=== PATIENT | female | born 1945 | race Caucasian/White ===

== ENCOUNTER 2024-07-31 11:20 | Emergency (ER) | payer MEDICARE, SELFPAY ==
--- NOTE | ~2024-07-31 | XR_ITS ---
EXAMINATION: XR wrist RT min 3V DATE: 07/31/2024 11:44 INDICATION: Radial sided right wrist pain and swelling post fall TECHNIQUE: Posteroanterior, ulnar deviation, oblique, and lateral views of the right wrist were obtai komal. COMPARISON: none FINDINGS: Dorsally impacted fracture the distal right radius with buckling of the dorsal sided cortex and 10 de grees dorsal tilt of the distal articular surface. Aside from the cortical buckling the fracture line is unable be clearly visualized. No definitive involvement of the articular cortex although this can not be absolutely excluded given the proximity. No other fractures identified. There is widening of t he scapholunate interval with increase lunocapitate and scapholunate angles consistent with scapholun ate ligament insufficiency and secondary dorsal intercalated segment instability (DISI). 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 Additional miley yarticular osteoarthritis, moderate to severe at the second and third metacarpophalangeal joints, mod erate at the fourth metacarpophalangeal joint and mild at the distal radioulnar, triscaphe, first car pometacarpal, first and fifth metacarpophalangeal and at the visualized proximal interphalangeal join ts. IMPRESSION: 1. Dorsal impaction of a nondisplaced fracture of the distal right radius with 10 degree dorsal tilt of the distal articular surface. 2. 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 3. 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 This atypical distribution can be seen in the setting of secondary osteoarthritis related to calci um pyrophosphate deposition (CPPD) disease. Reviewed, dictated and finalized at location A. ECTIVE SIGNAL OPERATOR IMPRESSION: 1. Dorsal impaction of a nondisplaced fracture of the distal right radius with 10 degree dorsal tilt of the distal articular surface. 2. 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 3. Polyarticular osteoarthritis, moderate to severe at the second and third met acarpophalangeal joints. This atypical distribution can be seen in the setting of secondary osteoarthritis related to calcium pyrophosphate deposition (CPPD) disease.
--- OUTSIDE RECORDS SUMMARY | 2024-07-31 11:24 | XMS_ITS | Referral Summary ---
Author Organization [facility] Address [address] [place] [address] Care Team Providers Care Deli Associate Name Role Phone Zulay Snell MD Primary Care Provider +- [phone] Maximus Collier MD Unavailable [phone] Bryon Hwang DC Unavailable [phone] José Wing MD Unavailable [phone] Can Munroe MD Unavailable [phone] Enedina Carpenter MD Unavailable [phone] Allergies Active Allergy Reactions Criticality Noted Date Comments Risedronate Nausea only Low 12/07/2018 Ibandronate Nausea only Low 12/07/2018 Raloxifene Other (See comments) Low 04/25/2017 Calf cramps Medications dorzolamide-jerry olol (COSOPT) 22.3-6.8 mg/mL ophthalmic solution 7 Active bimatoprost (LUMIGAN) 0.01 % ophthalmic drops Administer into affected eye(s). Active vitamins A,C,E-zinc-rocío er (ICAPS) 14,320-226-200 aofv-sn-xtvc capsule as directed Active cholecalciferol (VITAMIN D-3) 5,000 unit capsule daily Active zw4-noc-mhv-cod liver-vit A-D3 240-1,000 mg capsule daily Active vit C/vit E/lutein/min/om ega-3 (OCUVITE ORAL) Take by mouth Active multivitamin with minerals tablet Take 1 tablet by mouth daily Active vitamin B complex capsule Take 1 capsule by mouth daily Active Active Problems Problem Noted Date Diagnosed Date Spasm of sphincter of Oddi 12/29/2020 Biliary tract disease 10/24/2017 Overview (11/28/2017): Images from the original note were not included. ERCP October 2017, underwent gallbladder removal, pancreatic duct stent in dilatation of the pancreatic duct. She still following up on a single pancreatic cyst associated with this problem. November 2017 Lymphopenia 11/15/2016 Overview (12/29/2020): The evaluated by Dr. Cosme 2018 Vegan diet 11/15/2016 Osteoporosis, idiopathic 10/26/2013 Overview (02/02/2023): Images from the original note were not included. Medication history for this problem: Attempted Actonel and Boniva and a Malone all of which caused side effects use medications only for about 3 months DEXA 2022 (+) osteoporosis on a new machine AP LUMBAR SPINE L1-L4:Total BMD is 0.858 g/cm2 T-score is -1.7 LEFT HIP:Total BMD is 0.594 g/cm2 T-score is -2.9 Femoral neck BMD is 0.577 g/cm2 T-score is -2.5 DEXA December 2018 LUMBAR SPINE: Mean bone mineral content is 0.891 g/cm2. The T-score is -1.4. LEFT HIP: Mean bone mineral content is 0.613 g/cm2. The neck T-score is -2.4. The total T-score is -2.7. CT abdomen showed 12/23/2016 : DEXA 2017 Assessment & Plan (11/15/2016 9:06 AM CDT): History of adverse leg irritation from Actonel 35 milligrams weekly June 2002 to June 2003, intolerant in the same way to Boniva 150, calf cramping developed with the staff and postmenopausal hormone Activella cause headaches Glaucoma 10/26/2013 Overview (11/15/2016): Glaucoma Dr. Wing takes care of this problem Resolved Problems Problem Noted Date Diagnosed Date Resolved Date Chronic abdominal pain 10/24/201711/28 Dyskinesia of gallbladder 10/24/2017 Overview (11/28/2017): Pancreatic duct stricture dilated 10/24/[address] COLLIER and gallbladder removed by Dr. Munroe at [facility] ([facility]) 10/24/201711/28 History of hyperparathyroidism 04/23/2017 04/25/2017 Left lower quadrant abdomina l swelling, mass and lump 02/19/2017 12/07/2018 Overview (02/22/2017): Images from the original note were not included. January 2017 Abdominal pain evaluation consistent with pancreatic pseudocyst, chronic pancreatitis : DIAGNOSIS COMMENT: There is a pancreatic duct stricture consistent with previous passage of possible gallstones causing a small pseudocyst. Is noted that the pancreatic fluid CEA levels are 22.2 and the pancreatic fluid amylase level is greater than 1500. The constellation of findings support diagnosis of pseudocyst. 01/2017 cyst aspirate Pancreatic cyst, cytology: - Satisfactory for evaluation - No malignant cells identified - Scant cellular debris, few inflammatory cells and rare collection of benign low cuboidal epithelial cells, compatible with pancreatic pseudocyst EGD biopsies January 2017 (-) Stomach, body, biopsy: - Minimal chronic inflammation, nonspecific - No intestinal metaplasia, dysplasia, or malignancy - No Helicobacter-like microorganisms identified on routine H&E stained section Stomach, antrum, biopsy: - Mild chronic gastritis - No intestinal metaplasia, dysplasia, or malignancy - No Helicobacter-like microorganisms identified on routine H&E stained section Small intestine, duodenum, biopsy: - No histopathologic abnormality 12/09/16 CT abdominal sonogram December 2016 Metabolic pancreatitis 02/19/201704/25 Overview (02/19/2017): New onset of the syndrome January 2017 Cause of the pancreatitis remains unclear however patient does have a history of chronic hyperparathyroidism that could be the cause January 2017 Abdominal pain evaluation consistent with pancreatic pseudocyst, chronic pancreatitis : DIAGNOSIS COMMENT: Is noted that the CEA levels are 22.2 and the amylase level is greater than 1500. The constellation of findings support a diagnosis of pseudocyst. 01/2017 cyst aspirate Pancreatic cyst, cytology: - Satisfactory for evaluation - No malignant cells identified - Scant cellular debris, few inflammatory cells and rare collection of benign low cuboidal epithelial cells, compatible with pancreatic pseudocyst Immunizations Immunization Administration Dates Next Due Influenza, Quad, Adjuvantate d, Intramuscular 01/31/2023 Influenza, Quadrivalent, Spl it, Intramuscular 02/05/2020 Influenza, Quadrivalent, Spl it, Preservative Free, Intramuscular 03/02/2022,05/05/2021,03/25/2019,03/26 Influenza, Trivalent, Cell Culture-based MDCK, Preservative Free, Antibiotic Free, Intramuscular 02/27/2024 Influenza, Unspecified 03/27/2018 Moderna SARS-CoV-2 Monovalen t Vaccination (12+ YRS) 08/31/2020,07/23/2020 Pneumococcal Conjugate PCV 13 09/30/2014, 012 Pneumococcal Polysaccharide PPV23 11/15/2016, Td, adsorbed 03/03/2022 Tdap 01/31/2023,10/05/2012 ZOSTER LIVE 05/08/2008 ZOSTER Recombinant 04/06/2020,01/30/2020 Social History Tobacco Use Types Packs/Day Years Used Date Smoking Tobacco: Never Smokeless Tobacco: Never Alcohol Use Standard Drinks/Week Comments No 0 (1 standard drink = 0.6 oz pur e alcohol) AUDIT-C Answer Date Recorded Q1: How often do you have a drink containing alc ohol? Monthly or less 09/25/2023 Q2: How many drinks containi ng alcohol do you have on a typical day when you are drinking? 1 or 2 09/25/2023 Q3: How often do you have si x or more drinks on one occasion? Never 09/25/2023 PHQ-2 Answer Date Recorded PHQ-2 Total Score (If total score is 3 or more points, staff should administer the PHQ-9) 0 03/06/2024 Personal Safety Answer Date Recorded Have you ever been in or are you currently in a harmful physical or emotional relationship or is someone making you feel afraid or unsafe? 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 Gender Identity Not on file Sexual Orientation Not on file Last Filed Vital Signs Vital Sign Reading Time Taken Comments Blood Pressure 138/62 03/06/2024 10:13 AM CDT Pulse 88 03/06/2024 10:13 AM CDT Temperature 36.1 C (96.9 F) 03/06/2024 10:13 AM CDT Respiratory Rate 18 03/06/2024 10:13 AM CDT Oxygen Saturation 83% 03/06/2024 10:13 AM CDT Inhaled Oxygen Concentration - - Weight 53.6 kg (118 lb 3.2 oz) 03/06/2024 10:13 AM CDT Height 162.6 cm (5' 4 ) 03/06/2024 10:13 AM CDT Body Mass Index 20.29 03/06/2024 10:13 AM CDT Plan of Treatment Not on file Medical Devices Explanted Type Area Hi Low Truck Driver Device Identifier Shelf Expiration Date Model / Serial / Lot Stent Pancreatic Van Flexi-Stent .035 In L3 Cm Od7 Fr Small Pigtail Flexible - [id number] Implanted:Qty: 1 on 10/23/2017 by Maximus Collier MD at [facility] Explanted:Qty: 1 on 10/25/2017 by Maximus Collier MD at [facility] Stent N/A: Pancreas [employer] 05/11/2022 [id number] / / [id number] Stent Endoprosthesis Viabil Nitinol L60 Mm L200 Cm Od8 Mm Od8.5 Fr Biliary Expandable Pull Line Without Holes - [id number] - [id number] Implanted:Qty: 1 on 10/23/2017 by Maximus Collier MD at [facility] Explanted:Qty: 1 on 10/25/2017 by Maximus Collier MD at [facility] Stent N/A: Bile Duct Conmed Musa 05/30/2020 [id number] / [id number] / Procedures Procedure Name Priority Date/Time Associated Diagnosis Comments DEXA AXIAL SKELETON BONE DENSITY 1 OR MORE SITES Schedule Routine, Read Routine (OP Routine) 02/02/2023 2:11 PM CDT Menopause from Last 3 Months or Most Recently Relevant to Health Maintenance Results * Dexa Axial Skeleton Bone Density 1 or 2 Site (02/02/2023 2:11 PM CDT) Anatomical Region Laterality Modality Body N/A Other 02/02/2023 9:23 PM CDT Narrative 02/02/2023 9:26 PM CDT EXAM DESCRIPTION: DEXA AXIAL SKELETON BONE DENSITY 1 OR MORE SITES REASON FOR STUDY: 77 y/o year old F with given history of: menopause Screening Hi Low Truck Driver/Model: CompassMed SL (S/N [id number]) CLINICAL INFORMATION: Current height: 63.5 inches Maximum height: 64.5 inches Weight: 121 pounds Risk factors: Postmenopausal COMPARISON: 12/11/2018, 12/15/2020 FINDINGS: AP LUMBAR SPINE L1-L4: Total BMD is 0.858 g/cm2 T-score is -1.7 Dissimilar scan types or analysis methods precludes assessment for calculating a significant change. LEFT HIP: Total BMD is 0.594 g/cm2 T-score is -2.9 Femoral neck BMD is 0.577 g/cm2 T-score is -2.5 FRAX: FRAX not reported due to T-scores of hip, femoral neck and/or spine being at or below -2.5 (Osteoporosis). IMPRESSION: Osteoporosis. REFERENCE: Bone mineral density: Normal (T-score above or = -1.0) Low bone mass (T-score between -1.0 and -2.5) replaces the previously used term osteopenia Osteoporosis (T-score = or below -2.5) Medical evaluation for secondary causes of low bone mineral density may be appropriate. FRAX is a World Health Organization validated fracture risk assessment tool that calculates a person's 10 year probability of a major osteoporosis related fracture and hip fracture. According to the National Osteoporosis Foundation guidelines, postmenopausal women and men age 50 or older with low bone mass and a 10 year probability of a major osteoporosis related fracture = or greater than 20% or a 10 year probability of a hip fracture = or greater than 3% should be considered for treatment. For further information, including treatment recommendations, please refer to the 2019 ISCD Official Positions (http://www.iscd.org) and the NOF's Clinician's Guide to Prevention and Treatment of Osteoporosis (http://www.nof.org/professionals/clinical-guidelines) THIS IS AN ELECTRONICALLY VERIFIED FINAL REPORT 02/02/2023 9:26 PM - Electronically signed by Brijesh Ferreira M.D. MF: KALYN Report ID: [id number] Reading Location: [id number] Procedure Note Brijesh Ferreira MD - 02/02/2023 EXAM DESCRIPTION: DEXA AXIAL SKELETON BONE DENSITY 1 OR MORE SITES REASON FOR STUDY: 77 y/o year old F with given history of: menopause Screening Hi Low Truck Driver/Model: ViFlux (S/N 58193) CLINICAL INFORMATION: Current height: 63.5 inches Maximum height: 64.5 inches Weight: 121 pounds Risk factors: Postmenopausal COMPARISON: 12/11/2018, 12/15/2020 FINDINGS: AP LUMBAR SPINE L1-L4: Total BMD is 0.858 g/cm2 T-score is -1.7 Dissimilar scan types or analysis methods precludes assessment for calculating a significant change. LEFT HIP: Total BMD is 0.594 g/cm2 T-score is -2.9 Femoral neck BMD is 0.577 g/cm2 T-score is -2.5 FRAX: FRAX not reported due to T-scores of hip, femoral neck and/or spine beingat or below -2.5 (Osteoporosis). IMPRESSION: Osteoporosis. REFERENCE: Bone mineral density: Normal (T-score above or = -1.0) Low bone mass (T-score between -1.0 and -2.5) replaces thepreviously used term osteopenia Osteoporosis (T-score = or below -2.5) Medical evaluation for secondary causes of low bone mineral density may be appropriate. FRAX is a World Health Organization validated fracture risk assessmenttool that calculates a person's 10 year probability of a major osteoporosisrelated fracture and hip fracture. According to the National OsteoporosisFoundation guidelines, postmenopausal women and men age 50 or older with low bonemass and a 10 year probability of a major osteoporosis related fracture = or greater than 20% or a 10 year probability of a hip fracture = or greaterthan 3% should be considered for treatment. For further information, including treatment recommendations, please referto the 2019 ISCD Official Positions (http://www.iscd.org) and the NOF's Clinician's Guide to Prevention and Treatment of Osteoporosis (http://www.nof.org/professionals/clinical-guidelines) THIS IS AN ELECTRONICALLY VERIFIED FINAL REPORT 02/02/2023 9:26 PM - Electronically signed by Brijesh Ferreira M.D. MF: KALYN Report ID: [id number] Reading Location: [place] [address] Zulay Snell MD IMG DXA PROCEDURES Final R esult from Last 3 Months or Most Recently Relevant to Health Maintenance Insurance MEDICARE SOLUTIONS AETNA MEDICARE AETNA MEDICARE Advance Directives For more information, please contact: [phone] Documents on File Type Date Recorded Patient Application Architect Expl anation ADVANCE DIRECTIVE 12/07/2018 9:46 AM DNR ADVANCE DIRECTIVE 06/17/2014 12:00 AM LIVIN G WILL ADVANCE DIRECTIVE 06/17/2014 12:00 AM POWER OF RETAIL CUSTOMER SERVICE SPECIALIST FINANCIAL/MEDICAL ADVANCE DIRECTIVE 09/07/2006 LIVING BAILEY L ADVANCE DIRECTIVE 09/07/2006 POWER OF A TTORNEY-MEDICAL * Full Code (Latest Code Status on File) Date Activated Date Inactivated Comments 09/25/2023 9:38 AM 09/25/2023 4:00 PM * Full Code Date Activated Date Inactivated Comments 09/23/2020 10:34 AM 09/23/2020 6:10 PM * Full Code Date Activated Date Inactivated Comments 09/21/2018 8:44 AM 09/21/2018 4:00 PM * Full Code Date Activated Date Inactivated Comments 10/25/2017 9:19 AM 10/25/2017 5:19 PM * Full Code Date Activated Date Inactivated Comments 10/24/2017 9:22 PM 10/25/2017 9:19 AM Care Teams Deli Associate Relationship Specialty Start Date End Date Zulay Snell MD PCP - General 09/09/16 Maximus Collier MD [address] [address] Gastroenterology 02/22/17 Bryon Hwang DC [address] [facility] [address] [place] [address] Chiropractic Medicine 04/25/17 José Wing MD [address] [facility] [address] [place] [address] Ophthalmology 04/25/17 Can Munroe MD [address] [facility] [address] [place] [address] Consulting Physician General Surgery 11/28/17 Enedina Carpenter MD [address] [facility] [address] [place] [address] Consulting Physician Gastroenterology 11/28/17 Ruthie Mcmahan Dentist Dentistry 01/05/22
--- OUTSIDE RECORDS SUMMARY | 2024-07-31 11:24 | XMS_ITS | Clinical Summary ---
Author Organization [facility] Address [address] [place] [address] Care Team Providers Care Undercar Specialist Name Role Phone Zulay Snell MD Primary Care Provider [phone]- [phone] Maximus Alfonso MD Unavailable [phone] Bryon Hwang DC Unavailable [phone] José Wing MD Unavailable [phone] Can Munroe MD Unavailable [phone] Enedina Carpenter MD Unavailable [phone] Allergies Active Allergy Reactions Criticality Noted Date Comments Risedronate Nausea only Low 12/07/2018 Ibandronate Nausea only Low 12/07/2018 Raloxifene Other (See comments) Low 04/25/2017 Calf cramps Medications dorzolamide-jerry olol (COSOPT) 22.3-6.8 mg/mL ophthalmic solution 7 Active bimatoprost (LUMIGAN) 0.01 % ophthalmic drops Administer into affected eye(s). Active vitamins A,C,E-zinc-rocío er (ICAPS) 14,320-226-200 qgyb-mf-iykb capsule as directed Active cholecalciferol (VITAMIN D-3) 5,000 unit capsule daily Active ig3-sjt-noa-cod liver-vit A-D3 240-1,000 mg capsule daily Active [...] problem: Attempted Actonel and Boniva and a [place] all of which caused side effects use [...] Pancreatic duct stricture dilated 10/24/[address] ALFONSO and gallbladder removed by Dr. Munroe at [facility] ([facility]) 10/24/201711/28 History of hyperparathyroidism 04/23/2017 04/25/2017 Left [...] 01/31/2023,10/05/2012 ZOSTER LIVE 05/08/2008 ZOSTER Recombinant 04/06/2020,01/30/2020 Surgical History Surgery Date Site/Laterality Comments EYE SURGERY cataract left eye and retina both eye TUBAL LIGATION COLONOSCOPY 10/11/[address] Carpenter VITRECTOMY 07/13/2007 - 08/10/2007 Dr. WING OTHER SURGICAL HISTORY TONSILLECTOMY/ADENOIDECTOMY ERCP ERCP 09/21/2018 Dr. ALFONSO/ Dr. 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 biopsies not taken CATARACT EXTRACTION 06/12/2021 - 07/12/2021 Right Medical History Medical History Date Comments Hx Other Medical 2013 Shingles Cataract left eye Glaucoma Osteoporosis Varicella chicken pox and shingles Vitamin D deficiency Weight loss Infectious viral hepatitis test positive for Hep B Dyskinesia of gallbladder 10/24/2017 Family History Medical History Relation Name Comments Heart failure Father Alzheimer's disease Mother Osteoporosis Mother Breast cancer Mother's Sister Relation Name Status Comments Father Mother Mother's Sister Social History Tobacco Use Types Packs/Day Years [...] on file 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 Gender Identity Not on file Sexual Orientation Not on file Obstetrics History Para Term AB IAB SAB Ectopic Multiple Livin g Live Births 4 2 2 Date Outcome GA Total Labor Labor/2nd/3rd Weight Sex Type Anes PTL Dorothea A1 A5 Name Clin Term Term Last Filed Vital Signs Vital Sign Reading [...] 03/06/2024 10:13 AM CDT Plan of Treatment Health Maintenance Due Date Last Done Comments Covid-19 Vaccine (2023-07 5 season) 2024 04/14/2021, 08/31/2020, 07/23/2020 Osteoporosis Screening-Bone Density Scan 02/02/2025 02/02/2023, 12/15/2020, 12/11/2018 Depression Screening 03/06/2025 03/06/2024, 01/26/2023, 01/05/2022, Additional history exists Fall Risk Assessment 03/06/2025 03/06/2024, 01/26/2023, 01/05/2022, Additional history exists Well Visit 65+ 03/06/2025 03/06/2024, 01/10, 01/05/2022, Additional history exists DTaP/Tdap/Td Vaccine (4 - Td or Tdap) 01/31/2033 01/31/2023, 03/03/2022, 10/05/2012 Pneumococcal vaccine 65+ Completed 017, 09/30/2014, 11/10/2011, Additional history exists Zoster Vaccine Completed 04/06/2020, 01/11, 05/08/2008 Influenza Vaccine Completed 02/27/2024, , 03/02/2022, Additional history exists Hepatitis B Screening Completed 03/06/2024 Medical Devices Explanted Type Area Community Dietitian Device Identifier Shelf Expiration Date Model / Serial / Lot Stent Pancreatic Van Flexi-Stent .035 In L3 Cm Od7 Fr Small Pigtail Flexible - [id number] Implanted:Qty: 1 on 10/23/2017 by Maximus Alfonso MD at [facility] Explanted:Qty: 1 on 10/25/2017 by Maximus Alfonso MD at [facility] Stent N/A: Pancreas [employer] 05/11/2022 [id number] / / [id number] Stent Endoprosthesis Viabil Nitinol L60 Mm L200 Cm Od8 Mm Od8.5 Fr Biliary Expandable Pull Line Without Holes - [id number] - [id number] Implanted:Qty: 1 on 10/23/2017 by Maximus Alfonso MD at [facility] Explanted:Qty: 1 on 10/25/2017 by Maximus Alfonso MD at [facility] Stent N/A: Bile Duct Conmed Musa 05/30/2020 [id number] / [id number] / Procedures Procedure Name Priority Date/Time Associated [...] F with given history of: menopause Screening Community Dietitian/Model: [employer]anetics (S/N 63541) CLINICAL INFORMATION: Current height: 63.5 inches Maximum [...] Brijesh Ferreira M.D. MF: KALYN Report ID: [id number] Reading Location: [id number] Procedure Note Brijesh Ferreira MD - 02/02/2023 EXAM DESCRIPTION: DEXA AXIAL SKELETON BONE DENSITY 1 OR MORE SITES REASON FOR STUDY: 77 y/o year old F with given history of: menopause Screening Community Dietitian/Model: Bundle [employer] SL (S/N 14058) CLINICAL INFORMATION: Current height: 63.5 inches Maximum [...] Brijesh Ferreira M.D. MF: KALYN Report ID: [id number] Reading Location: [place] [address] Zulay Snell MD IMG DXA PROCEDURES Final R esult from Last 3 Months or Most Recently Relevant to Health Maintenance Insurance MEDICARE SOLUTIONS AETNA MEDICARE AETNA MEDICARE Advance Directives For more information, please contact: [phone] Documents on File Type Date Recorded Patient Carroter Expl anation ADVANCE DIRECTIVE 12/07/2018 9:46 AM DNR ADVANCE DIRECTIVE 06/17/2014 12:00 AM LIVIN G WILL ADVANCE DIRECTIVE 06/17/2014 12:00 AM POWER OF TONAL REGULATOR FINANCIAL/MEDICAL ADVANCE DIRECTIVE 09/07/2006 LIVING BAILEY L [...] 9:22 PM 10/25/2017 9:19 AM Care Teams Undercar Specialist Relationship Specialty Start Date End Date Zulay Snell MD PCP - General 09/09/16 Maximus Alfonso MD [address] [address] Gastroenterology 02/22/17 Bryon Hwang DC [address] [address] Chiropractic Medicine 04/25/17 José Wing MD [address] [address] Ophthalmology 04/25/17 Can Munroe MD [address] [address] Consulting Physician General Surgery 11/28/17 Enedina Carpenter MD [address] [address] Consulting Physician Gastroenterology 11/28/17 Ruthie Mcmahan Dentist Dentistry 01/05/22
--- OUTSIDE RECORDS SUMMARY | 2024-07-31 11:25 | XMS_ITS | Encounter Summary ---
[facility] Organization [facility] Address [address] [place] [address] Phone Care Team Providers Care Teacher Of Family And Consumer Science Name Role Phone Zulay Snell MD Primary Care Provider [phone]- [phone] Maximus Alfonso MD Unavailable [phone] Tre Cosme MD Unavailable Bryon Hwang DC Unavailable [phone] José Wing MD Unavailable [phone] Can Munroe MD Unavailable [phone] Enedina Carpenter MD Unavailable [phone] Encounter Details Date Type Department Care Team (Late st Contact Info) Description 11/17/2016 Orders Only [facility] [address] [place] [address] Tamia Peterson MA Social History Tobacco Use Types Packs/Day Years Used Date Smoking Tobacco: Never Assessed Comments Unknown Sex and Gender Information Value Date Recorded Sex Assigned at Not on file 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 Gender Identity Not on file Sexual Orientation Not on file documented as of this encounter Plan of Treatment Not on file documented as of this encounter Visit Diagnoses Not on filedocumented in this encounter Care Teams Teacher Of Family And Consumer Science Relationship Specialty Start Date End Date Zulay Snell MD PCP - General 09/09/16 Maximus Alfonso MD [address] [address] Gastroenterology 02/22/17 Tre Cosme MD [address] [address] Medical Oncology 02/22/17 12/28/20 Bryon Hwang DC [address] [address] Chiropractic Medicine 04/25/17 José Wing MD [address] [place] [address] Ophthalmology 04/25/17 Can Munroe MD [address] [place] [address] Consulting Physician General Surgery 11/28/17 Enedina Carpenter MD [address] [place] [address] Consulting Physician Gastroenterology 11/28/17 Ruthie Mcmahan Dentist Dentistry 01/05/22 documented as of this encounter
--- OUTSIDE RECORDS SUMMARY | 2024-07-31 11:25 | XMS_ITS | Continuity of Care Document ---
Author Organization [employer] [facility] Address [address] [facility] [address] [address] Phone Care Team Providers Care Bakery Supervisor Name Role Phone Mainor Monet MD, MD Unavailable Unavailab le Allergies, Adverse Reactions, Alerts Substance Reaction Status Criticality No Known allergies Medications Medication Instructions Dosage Effective Dates (start - stop) Status Comments Lumigan 0.03 % Eye Drops instill 1 drop by Ophthalmic route every day into affected eye(s) in the evening - Active Procedures Procedure Date Post-op Follow-up Visit Post-op Follow-up Visit Post-op Follow-up Visit Remove Cataract, Insert Lens IOLMaster-Professional SCODI, Posterior Segment Corneal Topography IOLMaster-Technical Eye Exam Established Pt Certified EMR One Or More Rx Generated And Transmitted Optic Nerve Head Eval IPO Reduced 15% SCODI, Posterior Segment Office/outpatient Visit, Est Visual Field Examination(s) Office/outpatient Visit, Est Optic Nerve Head Eval IPO Reduced 15% Office/outpatient Visit, Est Office/outpatient Visit, Est SCODI, Posterior Segment Office/outpatient Visit, Est Visual Field Examination(s) Office/outpatient Visit, New Special Eye Evaluation Corneal Pachymetry Eye Exam Established Pt Ophthalmoscopy, Subsequent Ophthalmoscopy, Subsequent Office Consultation Ophthalmoscopy Eye Exam, New Patient Advance Directives Directive Yes / No Effective Date File Name Resuscitation Not Answered N/A N/A Life Support Not Answered N/A N/A Intubation Not Answered N/A N/A Antibiotics Not Answered N/A N/A IV Fluid Support Not Answered N/A N/A Tube Feed Not Answered N/A N/A Other Directive N/A N/A WARNING:The information contained in this section is historical and is provided for information only and does not constitute a legal document or any assurance that the information is still accurate. Please verify the information with the cruz of the legal document before using it for clinical purposes. Encounters Encounter Description Practice Location Reason(s) For Visit Diagnoses Date Provider Providers Copied on Encounter [facility], [address] [place] [address] [address], [place], [place], [address], tel:[phone] SEC Jesus GARCIA Professional a comprehensiv e exam (chief complaint) FOLLOW-UP SURGERY NOS - 2 Tierney Hayward. [facility], [address], [facility], . tel:[phone] [facility], [address] [place] [address] [address], [place], [place], [address], tel:[phone] SEC Jesus JOSE Professional a comprehensiv e exam (chief complaint) FOLLOW-UP SURGERY NOS 0- 2 Tierney Hayward. [address] [facility], [address], [place], [facility], . tel:[phone] [facility], [address] [place] [address] [address], [place], [place], [address], tel:[phone] SEC Jesus [place] Professional a comprehensiv e exam (chief complaint) No Information 2 Tierney Hawyard. [address], [address], [place], [place], [facility], [place]. tel:[phone] [facility], [address], [place], [place], [address], [place] tel:[phone] [facility] No Information 2 Tierney Hayward. [address], [address], [place], [place], [facility], [place]. tel:[phone] [facility], [address], [place], [place], [address], [place] tel:[phone] SEC Dianne N [place] No Information 2 Tierney Hayward. [address], [address], [place], [place], [facility], [place]. tel:[phone] [facility], [address], [place], [place], [address], [place] tel:[phone] SEC [place] N [place] No Information 2 Tierney Hayward. [address], [address], [place], [facility], [place]. tel:[phone] [facility], [address], [place], [place], [address], [place] tel:[phone] SEC [place] N [place] No Information 2 Tierney Hayward. [address], [place], [facility], [place]. tel:[phone] [facility], [address], [place], [place], [address], [place] tel:[phone] SEC [place] Professional a comprehensiv e exam (chief complaint) POST SUBCAP SENILE CATARPRIM OPEN ANGLE GLAUCOMAINCI PIENT CATARACTSENI LE NUCLEAR CATARACT 2 Tierney Hayward. [address], [place], [address], [place]. tel:[phone] [facility], [address], [place], [place], [address], [place] tel: [phone] SEC Jesus JOSE Professional No Information 2 Wankum Mckay. [address] [facility], [facility], [place], [place], [address], [place]. tel:[phone] Office/outpat ient Visit, [facility], [address], [place], [place], [address], [place] tel:[phone] SEC [place] Professional No Information 2 Wankum Mckay. [address] [facility] [facility], [facility] [place], [address], [place]. tel:[phone] Office/outpat ient Visit, [facility], [address], [place], [place], [address], [place] tel:[phone] SEC [place] Professional No Information 2 Wankum Mckay. [address] [facility], [facility] [place], [address], [place]. tel:[phone] Office/outpat ient Visit, [facility], [address] [place] [address] [address], [place], [place], [address], [place] tel:[phone] SEC Jesus [place] Professional No Information 1 Wankum Mckay. [address] [facility], [facility] [place], [address], [place]. tel:[phone] Office/outpat ient Visit, [facility], [address], [place], [place], [address], [place] tel:[phone] SEC Jesus [place] Professional No Information 1 Wankum Mckay. [address], [place], [place], [address], [place]. tel:[phone] Office/outpat ient Visit, [facility], [address], [place], [place], [address], [place] tel:[phone] SEC Jesus [place] Professional No Information 1 Wankum Mckay. [address], [address], [place], [place], [address], [place]. tel:[phone] Office/outpat ient Visit, [facility], [address], [place], [place], [address], [place] tel:[phone] SEC [place] Professional No Information 1 Wankum Mckay. [address], [place], [place], [address], [place]. tel:[phone] [facility], [address], [place], [place], [address], [place] tel:[phone] [facility] No Information 8 Licea Orion. [address] [place], [address], [place]. tel:[phone] [facility], [address], [place], [place], [address], [place] tel:[phone] [facility] No Information 8 Vinayak Orion. [address] [place], [address], [place]. tel:[phone] [facility], [address], [place], [place], [address], [place] tel:[phone] [facility] No Information 200 8 Liceawilli Sears. [address] [facility], [place], [address], [place]. tel:[phone] Referring Provider: Sebastien Elizondo, [address], [place], [address]. tel:[phone] [facility], [address], [place], [place], [address], [place] tel:[phone] [facility] No Information 200 8 Yolanda Crowe. [address] [facility] , [address], [place], [address], [place]. tel:[phone] Family History Family Member Type Diagnosis Age At Onset Problem (finding) Close relative Problem (finding) glaucoma Payers Payer name Insurance type Covered constitution party ID Authoriza tion(s) No Information Social History Type Description Quantity Date Captured Comments Alcohol Use Details Unknown Caffeine Use Details Unknown Tobacco Use Status No Information Smoking Status No Information Sex Female Chief Complaint And Reason For Visit From encounter dated '03/21/2012 15:30'. a comprehensive exam (chief complaint) Reason For Referral Reason For Referral No Information History Of Present Illness Encounter Date Complaint History Of Prese nt Illness No Information Functional Status Date Functional Assessmen t No Information Instructions Date Instruction Additional Infor mation FOLLOW-UP SURGERY NO S, OS - 2 month po phaco w/ PCIOL- vision affected - will continue to monitor - Discussed vision and curved lines. Pt understands she will need to be referred back to Dr. Moreno. Suspicious of possible fluid in retina, pt states ERM removed from OS. Use Nevanac TID until seen by retina specialist. Azopt BID OS. Lumigan qhs OD. Will monitor. Related to FOLLOW-UP SURGERY NOS - Refer to Dr. Moreno/ yariel goode Related to FOLLOW-UP SURGERY NOS - 3 months either doctor w/ VF R elated to FOLLOW-UP SURGERY NOS FOLLOW-UP SURGERY NO S, OS - 2 week po phaco w/ PCIOL-established, stable - vision improved - will continue to monitor - Continue tapering gtts. No activity restrictions. Azopt OS, Lumigan OD, continue Azopt for 3 weeks BID OS. After 3 weeks go back to lumigan. If refilled then use Azopt until gone. Monovision. Related to FOLLOW-UP SURGERY NOS poag - azopt for lumigan this mo nt. post op day one phac o with iol os, healing as expected - tobradex and diclofenac QID, hold on lumigan and replace with azopt for one month, iop is good today, but significant cupping. RTC two weeks, get OCT of macula if VA cannot be improved to better than 20/30. - Sched CE OS- Toric DVO Orbscan Related to Cataract, Nuclear Sclerosis Cataract, Nuclear Sc lerosis, OU - OS>OD- vision affected - may improve with surgery - Cataract(s) accounts for patient's complaints. Discussed all risks, benefits, procedures and recovery. Patient understands changing glasses will not improve vision. Patient desires to have surgery, recommend PE w/IOL. Standard IOL discussed, supervisor pit and auxiliaries glasses will be needed. Lifestyle IOL discussed, possible Toric. Discussed leaving contacts out. Need measurements, orbscan and IOL master. Related to Cataract, Nuclear Sclerosis Primary Open-Angle G laucoma, OU - vision not affected - will continue to monitor - Discussed dx with pt. CSM. Discussed ECP, recommends staying on gtts due to well controlled. Will monitor. Related to Primary Open-Angle Glaucoma Assessments Type Assessment Date No Information Patient Care Teams Name Effective Dates (start - stop) Status Members No Information
--- OUTSIDE RECORDS SUMMARY | 2024-07-31 11:25 | XMS_ITS | Continuity of Care Document ---
Author Organization [email or web address] Address [address] [place] [address] Phone Care Team Providers Care Sports Broadcasting Internship Name Role Phone Halima ALFARO, Narinder Unavailable Unavailable Advance Directives Directive Yes / No Effective Date File Name No Information Encounters Encounter Description Practice Location Reason(s) For Visit Diagnoses Date Provider Providers Copied on Encounter [facility], [address], [place], [place], [address], tel:[phone] [facility] No Information Halima Barcenas. [address] [place], [place], [address] , [place]. tel: [phone] [facility], [address], [place], [place], [address], tel:[phone] [facility] Pancreatic cyst Silvano Roldan. [address], [facility] [address], [place], [address], [place]. tel: [phone] [facility], [address], [place], [place], [address], tel:[phone] [facility] Pancreatic cyst Silvano Roldan. [address], [place], [address], [place]. [phone] Family History Family Member Type Diagnosis Age At Onset No Information Payers Payer name Insurance type Covered libertarian ID Authoriza tion(s) No Information Social History Type Description Quantity Date Captured Comments Alcohol Use Details Unknown Caffeine Use Details Unknown Tobacco Use Status No Information Smoking Status No Information Sex Female Chief Complaint And Reason For Visit No Information Reason For Referral Reason For Referral No Information History Of Present Illness Encounter Date Complaint History Of Prese nt Illness No Information Functional Status Date Functional Assessmen t No Information Instructions Date Instruction Additional Infor mation No Information Assessments Type Assessment Date No Information Patient Care Teams Name Effective Dates (start - stop) Status Members No Information
--- OUTSIDE RECORDS SUMMARY | 2024-07-31 11:25 | XMS_ITS | Clinical Summary ---
Author Organization [facility] Address [address] [place] [address] Phone Care Team Providers Care Gear Lapper Name Role Phone Zulay Snell MD Primary Care Provider Allergies No known active allergies Medications Bimatoprost (LUMIGAN OP) Place in affected eye(s) daily. Active Dorzolamide HCl-Timolol Mal (COSOPT OP) Place in affected eye(s) 2 times daily. Active Jennings-3 Fatty Acids (FISH OIL PO) Take by mouth daily. Active PLANT STEROLS AND STANOLS PO Take by mouth 2 times daily. Active Vitamin D-Vitamin K (VITAMIN K2-VITAMIN D3 PO) Take by mouth daily. Active Active Problems Problem Noted Date Diagnosed Date Leukocytopenia 11/24/2016 Lower abdominal pain 11/24/2016 Early satiety 11/24/2016 Family History Medical History Relation Name Comments Cancer Maternal Aunt lung cancer Heart Disease Maternal Uncle Dementia Mother Osteoporosis Mother Relation Name Status Comments Father Maternal Aunt Maternal Uncle Mother Social History Tobacco Use Types Packs/Day Years Used Date Smoking Tobacco: Never Smokeless Tobacco: Never Alcohol Use Standard Drinks/Week Comments Yes 0 (1 standard drink = 0.6 oz pur e alcohol) Comments No Sex and Gender Information Value Date Recorded Sex Assigned at Not on file Legal Sex Female 8:37 PM CDT Gender Identity Not on file Sexual Orientation Not on file Last Filed Vital Signs Vital Sign Reading Time Taken Comments Blood Pressure 122/55 04/05/2017 11:07 AM CDT Pulse 44 04/05/2017 11:07 AM CDT Temperature 36.1 C (96.9 F) 04/05/2017 11:07 AM CDT Respiratory Rate 18 04/05/2017 11:07 AM CDT Oxygen Saturation 98% 04/05/2017 11:07 AM CDT Inhaled Oxygen Concentration - - Weight 54.2 kg (119 lb 8 oz) 04/05/2017 11:07 AM CDT Height 161.3 cm (5' 3.5 ) 04/05/2017 11:07 AM CD T Body Mass Index 20.84 04/05/2017 11:07 AM CDT Plan of Treatment Health Maintenance Due Date Last Done Comments DEXA Bone Density 1945 Hepatitis C Virus (HCV) Screening 1945 TdaP Immunization 1945 Pneumococcal Immunization (5 0+ years) (1 of 1 - PCV) 09/07/1993 Zoster Immunization (1 of 2) 09/07/1993 Respiratory Syncytial Virus (RSV) Immunization (Adult) (1 - 1-dose 75+ series) 09/07/2018 Influenza Immunization (#1) 2024 SARS-COV-2 Immunization (1 - 2023- season) 2024 Hepatitis B Immunization Aged Out No longer eligible based on patient's age to complete this topic Meningococcal Immunization (ACWY) Aged Out No longer eligible based on patient's age to complete this topic Rotavirus Immunization Aged Out No lo nger eligible based on patient's age to complete this topic Care Teams Gear Lapper Relationship Specialty Start Date End Date Zulay Snell MD [address] [facility] [place] [id number] PCP - General Internal Medicine 11/23/16
--- OUTSIDE RECORDS SUMMARY | 2024-07-31 11:28 | XMS_ITS | Continuity of Care Document ---
Author Organization [facility] Address [address] [place] [address] Phone Care Team Providers Care Weed Cooking Operator Name Role Phone Halima ALFARO, Narinder Unavailable Unavailable Advance Directives Directive Yes / No Effective Date File Name No Information Encounters Encounter Description Practice Location Reason(s) For Visit Diagnoses Date Provider Providers Copied on Encounter [facility], [address], [place], [place], [address], tel:[phone] [facility] No Information Halima Barcenas. [address] [place], [place], [address] , [place]. tel: [phone] [facility], [address], [place], [place], [address], tel:[phone] [facility] Pancreatic cyst Silvano Roldan. [address], [facility] [address], [place], [address], [place]. tel: [phone] [facility], [address], [place], [place], [address], tel:[phone] [facility] Pancreatic cyst Silvano Roldan. [address], [place], [address], [place]. tel:[phone] Family History Family Member Type Diagnosis Age At Onset No Information Payers Payer name Insurance type Covered alliance party ID Authoriza tion(s) No Information Social [...]
--- OUTSIDE RECORDS SUMMARY | 2024-07-31 11:28 | XMS_ITS | Patient Health Record ---
Author Organization [facility] Address [address] [place] [address] Care Team Providers Care Creative Perfumer Name Role Phone Alis ALFARO, Zulay Primary Care Provider Belinda COLLIER MD, CAROL Unavailable REASON FOR REFERRAL Reason EUS for pancreatic c yst surveillance Scheduled for 09/25/23 1000 Diagnosis 1 Cyst of pancreas (K8 6.2) Referral Organization [facility] Referring Provider First Name CAROL Referring Provider Last Name AMIRA Referring Provider Speciality Gastroente rology Referred Organization [facility] Referred Provider Jamar Schaefer Referred Address [address],[place], [place],[address],[place] Referred Provider Specialty Gastroentero logy Procedure 1 ENDOSCOPIC ULTRASOUN D EXAM (24192) Referral Priority Routine Referral Appointment Date 09/25/2023 MEDICATIONS Medication SIG (Take, Route, Fr equency, Duration) Notes Start Date End Date Status PreserVision AREDS - as directed Orally Active Vitamin C 1000 MG 1 tablet Orally Once a day for 30 day(s) Active Lumigan 0.01 % 1 drop into affected eye in the evening Ophthalmic Once a day Active Cosopt 22.3-6.8 MG/ML 1 drop into affect ed eye Ophthalmic Twice a day Active [place] 3 1000 MG 1 capsule Orally Onc e a day for 30 day(s) Active Vitamin D3 5000 UNIT 1 capsule Orally On ce a day for 30 day(s) Active SOCIAL HISTORY Tobacco Use: Social History Observation Description Date Details (start date - stop date) Never Smoker NA - NA Sex Assigned At : Social History Observation Description Sex Assigned At Unknown Tobacco Use/Smoking Question Answer Notes Are you a nonsmoker PROBLEMS Problem Type ICD Code Onset Dates Problem Status W/U Status Risk SNOMED Code Notes Problem Spasm of sphincter of Oddi (K83.4) Active confirmed Spasm of sphincter of Oddi (55187596) Problem Cyst of pancreas (K86.2) Active confirmed Cyst of pancreas (72093244) Problem Abdominal distension (gaseous) (R14.0) Active confirmed Flatulence, eructation and gas pain (745731667) PLAN OF TREATMENT Pending Test Test Name Order Date MRI : Abdomen with and without Contrast 12/29/2017 Insurance Providers Payer Name Payer Address Payer Phone Subscriber Number Group Number Insured Name Patient Relationship to Insured Coverage Start Date Coverage End Date [employer] Medicare Replace/HMO [address] [address] [place], [place] [id number] Beronica Prescott Self - patient is the insured MEDICAL (GENERAL) HISTORY Medical History History ICD Code Hx SIBO SOD/papillary stenosis Biliary dyskinesia Glaucoma Osteoporosis Pancreatic cyst Surgical History Surgery Date(Month/Year) EUS:[place]- mild atrophy pa nc body and tail. Dilated PD in main PD. Likely due to panc cyst vs. papillary stenosis. Cystic lesion in HOP and uncinate. S/P FNA, s/p branched IPMN. Normal CBD, gallbladder and ampulla. Rep 01/20/2017 Trabeculoplasty laser surg (48332) 06/12 Tubal ligation 06/12/1970 ERCP Aliperti 10/23/17 Papil carla stenosis s/p biliary/pancreatic sphinctertomies and short term dual duct protective stents placed. Severe gallbladder distention. Stents removed 10/25/17. Interim cholecystectomy. Lap tex 10/24/17
--- OUTSIDE RECORDS SUMMARY | 2024-07-31 11:28 | XMS_ITS | Continuity of Care Document ---
Author Organization [facility] [place] [address] [facility] [address] [address] Phone Care Team Providers Care Lawn Sprinkler Installer Name Role Phone Mainor Monet MD, MD [...] Diagnoses Date Provider Providers Copied on Encounter [facility], [address] [place] [address] [address], [place], [place], [address], tel:[phone] SEC Jesus GARCIA Professional a comprehensiv e exam (chief complaint) FOLLOW-UP SURGERY NOS - 2 Tierney Hayward. [facility], [address], [facility], . tel:[phone] [facility], [address] [place] [address] [address], [place], [place], [address], tel:[phone] SEC Jesus JOSE Professional a comprehensiv e exam (chief complaint) FOLLOW-UP SURGERY NOS 0- 2 Tierney Hayward. [facility], [address], [place], [facility], . tel:[phone] [facility], [address] [place] [address] [address], [place], [place], [address], tel:[phone] SEC Jesus [place] Professional a comprehensiv e exam (chief complaint) No Information 2 Tierney Hayward. [address], [address], [place], [place], [facility] [place], [place]. tel:[phone] [facility], [address], [place], [place], [address], [place] tel:[phone] [facility] [place] No Information 2 Tierney Hayward. [address], [address], [place], [place], [facility] [place], [place]. tel:[phone] [facility], [address], [place], [place], [address], [place] tel:[phone] SEC Dianne N [place] No Information 2 Tierney Hayward. [address], [address], [place], [place], [facility] [place], [place]. tel:[phone] [facility], [address], [place], [place], [address], [place] tel:[phone] SEC Thompsons N [place] No Information 2 Tierney Hayward. [address], [address], [place], [place], [facility], [place]. tel:[phone] [facility], [address], [place], [place], [address], [place] tel:[phone] SEC [place] N [place] No Information 2 Tierney Hayward. [address], [place], [place], [facility], [place]. tel:[phone] [facility], [address], [place], [place], [address], [place] tel:[phone] SEC [place] Professional a comprehensiv e exam (chief complaint) POST SUBCAP SENILE CATARPRIM OPEN ANGLE GLAUCOMAINCI PIENT CATARACTSENI LE NUCLEAR CATARACT 2 Tierney Hayward. [address], [address], [place], [address], [place]. tel:[phone] [facility], [address], [place], [place], [address], [place] tel:[phone] SEC Jesus JOSE Professional No Information 2 Wankum Mckay. [address] [facility], [facility], [place], [place], [address], [place]. tel:[phone] Office/outpat ient Visit, [facility], [address], [place], [place], [address], [place] tel:[phone] SEC [place] Professional No Information 2 Wankum Mckay. [address] [facility] [place], [facility] [place], [address], [place]. tel:[phone] Office/outpat ient Visit, [facility], [address], [place], [place], [address], [place] tel:[phone] SEC [place] Professional No Information 2 Wankum Mckay. [address] [facility], [facility] [place], [address], [place]. tel:[phone] Office/outpat ient Visit, [facility], [id number] [place] [address] [address], [place], [place], [address], [place] tel:[phone] SEC Jesus [place] Professional No Information 1 Wankum Mckay. [address] [facility], [facility] [place], [address], [place]. tel:[phone] Office/outpat ient Visit, [facility], [address], [place], [place], [address], [place] tel:[phone] SEC Jesus [place] Professional No Information 1 Wankum Mckay. [address], [place], [place], [address], [place]. tel:[phone] Office/outpat ient Visit, [facility], [address], [place], [place], [address], [place] tel:[phone] SEC Jesus [place] Professional No Information 1 Wankum Mckay. [email or web address], [place], [place], [address], [place]. tel:[phone] Office/outpat ient Visit, [facility], [address], [place], [place], [address], [place] tel:[phone] SEC [place] Professional No Information 1 Wankum Mckay. [address], [place], [place], [address], [place]. tel:[phone] [facility], [address], [place], [place], [address], [place] tel:[phone] [facility] No Information 8 Licea Orion. [address] [place], [address], [place]. tel:[phone] [facility], [address], [place], [place], [address], [place] tel:[phone] [facility] No Information 8 Vinayak Orion. [address] [place], [address], [place]. tel:[phone] Office Consultation [facility], [address], [place], [place], [address], [place] tel:[phone] [facility] No Information [address]. [address] [place], [address], [place]. tel:[phone] Referring Provider: Sebastien Elizondo, [address], [place], [address]. tel:[phone] [facility], [address], [place], [place], [address], [place] tel:[phone] [facility] No Information 8 Yolanda Crowe. [address] [facility] , [address], [place], [address], [place]. tel:[phone] Family History Family Member Type Diagnosis Age At Onset Problem (finding) Close relative Problem (finding) glaucoma Payers Payer name Insurance type Covered green party ID Authoriza tion(s) No Information Social [...] Information Instructions Date Instruction Additional Infor mation - Refer to Dr. Moreno/ yariel goode Related to FOLLOW-UP SURGERY NOS FOLLOW-UP SURGERY NO [...] Will monitor. Related to FOLLOW-UP SURGERY NOS FOLLOW-UP SURGERY NO S, OS - 2 week po phaco w/ PCIOL-established, stable - vision improved - will continue to monitor - Continue tapering gtts. No activity restrictions. Azopt OS, Lumigan OD, continue Azopt for 3 weeks BID OS. After 3 weeks go back to lumigan. If refilled then use Azopt until gone. Monovision. Related to FOLLOW-UP SURGERY NOS - 3 months either doctor w/ VF R elated to FOLLOW-UP SURGERY NOS post op day one phac o with iol os, healing as expected - tobradex and diclofenac QID, hold on lumigan and replace with azopt for one month, iop is good today, but significant cupping. RTC two weeks, get OCT of macula if VA cannot be improved to better than 20/30. poag - azopt for lumigan this mo nth. Primary Open-Angle G laucoma, OU - vision not affected - will continue to monitor - Discussed dx with pt. CSM. Discussed ECP, recommends staying on gtts due to well controlled. Will monitor. Related to Primary Open-Angle Glaucoma Cataract, Nuclear Sc lerosis, OU - OS>OD- vision affected - may improve with surgery - Cataract(s) accounts for patient's complaints. Discussed all risks, benefits, procedures and recovery. Patient understands changing glasses will not improve vision. Patient desires to have surgery, recommend PE w/IOL. 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 Lifestyle IOL discussed, possible Toric. Discussed leaving contacts out. Need measurements, orbscan and IOL master. Related to Cataract, Nuclear Sclerosis - Sched CE OS- Toric DVO Orbscan Related to Cataract, Nuclear Sclerosis Assessments Type Assessment Date No Information Patient Care Teams Name Effective Dates (start - stop) Status Members No Information
[2024-07-31 11:29] VITALS: BP 177/82; PULSE 80; RESP 18; TEMP 36.9; O2SAT 100
--- NOTE | 2024-07-31 11:57 | ED.UPPEXIN ---
HPI - Extremity Injury (Upper) General Chief Complaint: Extremity Injury, Upper Stated Complaint: Right Wrist injury Time Seen by Provider: 07/31/24 11:59 Source: patient and RN notes reviewed Mode of arrival: ambulatory Limitations: no limitations History of Present Illness HPI narrative: 78-year-old female presents with concern for wrist injury. Reports she was shoveling her driveway this morning when she fell and landed on her arm. She reports pain at the radial wrist. Denies decreased strength, sensation, range of motion. MD complaint: injury to: right and wrist Related Data Home Medications ?Medication ?Instructions ?Recorded ?Confirmed ?Last Taken ?Type bimatoprost 0.01 % eye drops drp 07/31/24 Unknown History ([place]) dorzolamide 22.3 mg-timolol 6.8 07/31/24 Unknown History mg/mL eye drops Allergies Allergy/AdvReac Type Severity Reaction Status Date / Time No Known Allergies Allergy Verified 07/31/24 11:37 Review of Systems Review of Systems: CONSTITUTIONAL: Denies malaise, chills, sweats, or fever. SKIN: Denies rash or itching, open skin, laceration, abrasion, redness, warmth MUSCULOSKELETAL: Reports right wrist pain and swelling NEUROLOGIC: Denies numbness, weakness All systems reviewed & are unremarkable except as noted in HPI and below PMFSH Comments At time of signature, agree with nursing past medical, surgical, social and family history. There is no relevant family history pertinent to the presenting complaint Exam Narrative: GENERAL: Well-appearing, well-nourished, and in no acute distress. HEAD: Normocephalic, atraumatic. EYES: PERRLA, conjunctivae clear NECK: Supple. CHEST: Speaks in full sentences. No respiratory distress. HEART: Regular rate and rhythm. Normal and equal peripheral pulses. EXTREMITIES: Right wrist, hand, digits have grossly normal strength and sensation, grossly normal range of motion. Mild radial edema without erythema or ecchymosis. 5/5 strength with digit flexion and extension. Normal sensation with sensitivity to light touch and pain. Radial tenderness. No open wounds, no skin tenting, no devitalized tissue or atrophy, no trophic changes, no obvious deformity, alignment normal, nearby joints and structures intact. Distal pulses palpable and equal bilaterally, skin warm, dry, pink. Capillary refill less than 3 seconds. SKIN: Warm, dry, no rash. NEURO: Alert and oriented x3. PSYCH: Normal mood and affect Course Course Emergency Course: Patient is aware of diagnosis, understands and agrees to treatment plan. Anticipatory guidance given. Patient agrees to follow-up as directed and is aware of reasons to seek care at the emergency department. Portions of this record may have been created with voice recognition software Level of Care: Express Care Visit Vital Signs Vital signs: Vital Signs Temperature 98.4 F 07/31/24 11:29 Pulse Rate 80 07/31/24 11:29 Respiratory Rate 18 07/31/24 11:29 Blood Pressure 177/82 H 07/31/24 11:29 Pulse Oximetry 100 07/31/24 11:29 Oxygen Delivery Room Air 07/31/24 11:29 Temperature 98.4 F 07/31/24 11:29 Pulse Rate 80 07/31/24 11:29 Respiratory Rate 18 07/31/24 11:29 Blood Pressure 177/82 H 07/31/24 11:29 Pulse Oximetry 100 07/31/24 11:29 Oxygen Delivery Room Air 07/31/24 11:29 Reviewed. Procedures Orthopedic Splinting/Casting Injury #1: Splinting/Casting Date: 07/31/24 Splinting/Casting Time: 12:08 Upper Extremity Injury Location: wrist Splint: customized in ED OCL: short arm Pre-Procedure Neuro Vascular Exam: normal Post-Procedure Neuro Vascular Exam: normal Other Orthopedic Equipment: other (sling) MDM - Extremity Injury (Upper) Imaging Data My impression: Images reviewed, interpreted by radiologist, agree, see report. Radiologist's impression: EXAMINATION: XR wrist RT min 3V DATE: 07/31/2024 11:44 INDICATION: Radial sided right wrist pain and swelling post fall TECHNIQUE: Posteroanterior, ulnar deviation, oblique, and lateral views of the right wrist were obtained. COMPARISON: none FINDINGS: Dorsally impacted fracture the distal right radius with buckling of the dorsal sided cortex and 10 degrees dorsal tilt of the distal articular surface. Aside from the cortical buckling the fracture line is unable be clearly visualized. No definitive involvement of the articular cortex although this cannot be absolutely excluded given the proximity. No other fractures identified. There is widening of the scapholunate interval with increase lunocapitate and scapholunate angles consistent with scapholunate ligament insufficiency and secondary dorsal intercalated segment instability (DISI). 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 Additional polyarticular osteoarthritis, moderate to severe at the second and third metacarpophalangeal joints, moderate at the fourth metacarpophalangeal joint and mild at the distal radioulnar, triscaphe, first carpometacarpal, first and fifth metacarpophalangeal and at the visualized proximal interphalangeal joints. IMPRESSION: 1. Dorsal impaction of a nondisplaced fracture of the distal right radius with 10 degree dorsal tilt of the distal articular surface. 2. 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 3. 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 This atypical distribution can be seen in the setting of secondary osteoarthritis related to calcium pyrophosphate deposition (CPPD) disease. Critical Care Time Critical Care Time Critical Care Time: No Discharge Plan Discharge Clinical Impression: Distal radial fracture Patient Disposition: Home, Self-Care Condition: Stable Instructions: Wrist Fracture in Adults (ED) Additional Instructions: Please rest, ice and elevate the affected extremity. Please take Motrin 600mg every 8 hours, as needed, for pain (take with food). You can take Tylenol in between doses of ibuprofen for pain. Follow up with Orthopedic Surgery in 1-2 days for further evaluation - please call for an appointment. Keep cast clean, dry and on. Please use garbage bag while showering to keep cast dry. Use sling/crutches. Please go to ER immediately for increased pain, tingling/numbness, swelling, redness, and fever Patient Language: Macedonian Prescriptions: No Action dorzolamide-timolol 22.3-6.8 mg/mL drops Lumigan 0.01 % drops Follow-up/Referrals: Tj Lisa MD [Physician] - Alis,MD Zulay [Primary Care Provider] - Time of Disposition: 12:05
== END 2024-07-31 12:32 | disposition home or self-care (01) ==
PROVIDERS: Emergency Provider Nurse Practitioner; PCP Internal Medicine Geriatric Medicine
DX: S52.501A Unspecified fracture of the lower end of right radius, initial encounter for closed fracture (principal); W19.XXXA Unspecified fall, initial encounter; Y93.H1 Activity, digging, shoveling and raking; H40.9 Unspecified glaucoma
CPT/HCPCS: 29125; 73110; 99204; A4565; G0463